=== PATIENT | male | born 1990 | race Caucasian/White ===

== ENCOUNTER 2018-12-27 15:48 | Emergency (ER) | payer SELFPAY ==
[~2018-12-27] VITALS: Ht 172.7 cm; Wt 68.0 kg
[2018-12-27] MEDS ORDERED: KALETRA 200-501 EACH ORAL (16:11)
[2018-12-27] MEDS ORDERED: vit d PO (16:11)
[2018-12-27] MEDS ORDERED: TIVICAY50 MG ORAL (16:11)
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
[2018-12-27] MEDS ORDERED: HYDROcodone/Acetamin 5/325 tab ORAL ONE (16:30)
[2018-12-27 16:42] VITALS: BP 128/76
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
[2018-12-27] MEDS ORDERED: NORCO 5-325 TA1 EACH ORAL (17:03)
[2018-12-27 17:05] VITALS: BP 115/75
--- NOTE | 2018-12-27 17:05 | NUR ---
ED Nurse Note: pt cleared to be d/c per ERMD, pt discharge and aftercare instruction provided w/ prescription, pt education done via discussion and handout, pt advised to follow up with pcp or return to ed if changes in condition, pt verbalized understanding and agrees with plan, vss, ambulatory w/ steady gait, left w/ all belongings,.
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
== END 2018-12-27 17:15 | disposition home or self-care (01) ==
LOC: EMR 17:13
DX: S40.011A Contusion of right shoulder, initial encounter (principal); S30.1XXA Contusion of abdominal wall, initial encounter; W05.1XXA Fall from non-moving nonmotorized scooter, initial encounter; Y92.9 Unspecified place or not applicable
CPT/HCPCS: 99283

== ENCOUNTER 2019-04-14 23:31 | Emergency (ER) | payer OTHER ==
[~2019-04-14] VITALS: Ht 172.7 cm; Wt 70.3 kg
[~2019-04-14 23:31] MED LIST: KALETRA 200-501 EACH ORAL; NORCO 5-325 TA1 EACH ORAL; TIVICAY50 MG ORAL; vit d PO
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
[2019-04-15] MEDS ORDERED: ROBAXIN-750750 MG PO (01:49)
[2019-04-15] MEDS ORDERED: IBUPROFEN600 MG ORAL (01:49)
[2019-04-15] MEDS ORDERED: ACETAMINOPHEN325 M1 ORAL (01:49)
[2019-04-15] MEDS ORDERED: LIDODERM700 M1 TOPIC (01:49)
--- NOTE | 2019-04-15 02:08 | NUR ---
discharge instruction and post op shoe to right foot applied . prescriptions given to patient to follow up with pmd
[2019-04-15 02:09] VITALS: BP 120/80
--- NOTE | 2019-04-15 02:18 | Diagnostic Imaging Report ---
EXAM: XR Right Shoulder Complete, 2 or More Views CLINICAL HISTORY: INJ TECHNIQUE: Two or more views of the right shoulder. COMPARISON: 12 27 18 FINDINGS: Bones joints: Unremarkable. No acute fracture. No dislocation. Soft tissues: Unremarkable. IMPRESSION: No acute bony abnormality.
--- NOTE | 2019-04-15 02:21 | Diagnostic Imaging Report ---
EXAM: XR Right Foot Complete, 3 or More Views CLINICAL HISTORY: INJ TECHNIQUE: Frontal, lateral and oblique views of the right foot. COMPARISON: No relevant prior studies available. FINDINGS: Bones joints: Faint partial lucency in the midshaft of the second metatarsal bone with surrounding callus formation. Overlying material obscure fine bone detail on the lateral view of the ankle region No other acute fracture. No dislocation. Soft tissues: Mild soft tissue swelling along the dorsum of the midfoot No radiopaque foreign body. Other findings: No significant displacement. IMPRESSION: 1. Healing fracture of the midshaft of second metatarsal bone. 2. Mild soft tissue swelling
== END 2019-04-15 02:12 | disposition home or self-care (01) ==
LOC: EMR 04-15 00:12
DX: S92.324A Nondisplaced fracture of second metatarsal bone, right foot, initial encounter for closed fracture (principal); S40.011A Contusion of right shoulder, initial encounter; V03.99XA Pedestrian with other conveyance injured in collision with car, pick-up truck or van, unspecified whether traffic or nontraffic accident, initial encounter; Y92.9 Unspecified place or not applicable; B20 Human immunodeficiency virus [HIV] disease
CPT/HCPCS: 73030; 73630; Z7502; 99284